=== PATIENT | female | born 1935 | race Caucasian/White ===

== ENCOUNTER 2020-04-05 12:36 | Outpatient (CLI) | payer MEDICARE ==
[~2020-04-05] VITALS: Ht 165 cm; Wt 92.7 kg
[~2020-04-05 12:36] MED LIST: ACET-819 PO; APIX2.5T PO; ASP81TEC PO; ASPI-586 PO; ATEN1TAB3 PO; BACI1TAB3 PO; CALC-6 PO; CALC-732 PO; CHOL10003 PO; CHOL100055 PO; CLOP75TA PO; CYAN100015 SL; DONE5TAB30 PO; FLUT9.9S NS; GLIP5TAB13 PO; GUAI120013 PO; KCL10CCR PO; LEVO500T2 PO; LOVA20TA2 PO; LOVA40TA2; LUTEIN PO; MAGN250T13 PO; MAGNESIUM PO; MEMA28CA PO; MTF500T PO; MULT-35 PO; POTA10TA36 PO; TRIA1TAB3 PO; ZINC PO
[2020-04-05] MEDS ORDERED: MEMA10TA2 PO (15:10)
[2020-04-05] MEDS ORDERED: DONE5TAB8 PO (15:10)
[2020-04-05] MEDS ORDERED: CITA10TA12 PO (15:10)
[2020-04-05] MEDS ORDERED: FEXO180T84 PO (15:10)
[2020-04-05] MEDS ORDERED: MTP25TSR PO (15:10)
[2020-04-05] MEDS ORDERED: GLIP5TAB13 PO (15:10)
[2020-04-05] MEDS ORDERED: CHOL100048 PO (15:10)
[2020-04-05] MEDS ORDERED: ASPI-999 PO (15:10)
[2020-04-05] MEDS ORDERED: MU V PO (15:10)
== END 2020-04-05 15:20 | disposition home or self-care (01) ==
LOC: PREOP 12:36
PROVIDERS: ATTEND Surgery
DX: Z01.818 Encounter for other preprocedural examination (principal)

== ENCOUNTER 2020-04-12 10:11 | Day surgery (SDC) | payer MEDICARE ==
[~2020-04-12] VITALS: Ht 165 cm; Wt 92.0 kg
[2020-04-12] VITALS (8 sets, daily range): BP systolic 94–138; BP diastolic 56–101
[~2020-04-12 10:11] MED LIST changes: +ASPI-999 PO; +CHOL100048 PO; +CITA10TA12 PO; +DONE5TAB8 PO; +FEXO180T84 PO; +MEMA10TA2 PO; +MTP25TSR PO; +MU V PO
[2020-04-12] MEDS ORDERED: LACTATED RINGERS 1,000 ML IV PRN (10:17)
[2020-04-12] MEDS ORDERED: CLINDAMYCIN 600 MG/50 ML IVPB 50 ML IV ONE (10:30)
[2020-04-12] MEDS ORDERED: LIDOCAINE PF 2% 5 ML (XYLOCAINE) VIAL ONE (11:06)
[2020-04-12] MEDS ORDERED: proPOfol 200 MG/20 ML (DIPRIVAN) VIAL IV ONE (11:06)
[2020-04-12] MEDS ORDERED: BUP/EPI 0.5% 1:200,000 (MARCAINE) 10ML VIAL IJ ONE (11:14)
[2020-04-12] MEDS ORDERED: LIDOCAINE 1% INJ 20 ML 20 ML VIAL ONE (11:16)
[2020-04-12] MEDS ORDERED: ESMOLOL 100 MG/10 ML (BREVIBLOC) VIAL ONE (12:07)
[2020-04-12] MEDS ORDERED: morphine INJ 10 MG/ML 1ML (SYR OR VIAL) IVP ONE (12:45)
[2020-04-12] MEDS ORDERED: ONDANSETRON 4 MG/2 ML (SDV) Z0FRAN IVP PRN (12:45)
--- NOTE | 2020-04-12 12:55 | Discharge Inst-Simple/Standard ---
Discharge Inst-Standard Patient Instructions/Follow Up Plan of Care/Instructions/FU: 12- 14 days for suture removal. Eduarda Activity as Tolerated: No Discharge Diet: Regular Diet Other Inst to Patient Follow up Appt: Make appointment for 12-14 days Instructions: No lifting greater than 10 pounds. No strenuous activity. May shower in 24 hours, no tub bath or soaking. Use incentive spirometer at home as directed. No Smoking Skin/Wound Care: May remove bandage after 24 hours. Keep area clean and dry. May replace bandage daily if needed. Any changes be seen at that time. Symptoms to Report: Appetite Changes, Extremity Discoloration, Numbness/Tingling, Swelling Increased, Bleeding Excessive, Eyesight Changes, Pain Increased, Urine Color Change, Constipation(Persistent), Fever over 101 degree F, Pain/Pressure in chest, Urinating Difficulty, Cough Up/Vomit Blood, Heart Beat Irreg/Pounding, Pain/Pressure in jaw, Vaginal Bleeding Increase, Cramps in feet or legs, Lightheadedness, Pain/Pressure in shoulder, Diarrhea(Persistent), Memory Changes Suddenly, Questions/Concerns, Weight gain consecutive days, Dizziness/Fainting, Nausea/Vomiting, Shortness of Breath, Weight gain over 2 pounds If questions or concerns contact your physician Or seek help at emergency department. CORBIN SERNA DO Apr 12, 2020 12:55
--- NOTE | 2020-04-12 12:58 | Progress Note-Post Operative ---
Post-Operative Progess Note Surgeon (s)/Flight Line Service Attendant (s) Surgeon CORBIN SERNA DO Flight Line Service Attendant: na Pre-Operative Diagnosis CYST LEFT LEG Post-Operative Diagnosis same Procedure & Operative Findings Date of Procedure 04/12/20 Procedure Performed/Findings excision left posterior thigh cyst 4.5x2cm Anesthesia Type mac c local Estimated Blood Loss Estimated blood loss (mL): min Specimens/Packing Specimens Removed skin and subcutaneous tissue (cyst) CORBIN SERNA DO Apr 12, 2020 12:58
--- NOTE | 2020-04-12 16:06 | Anesthesia-General Post-Op ---
MAC Patient Condition Mental Status/LOC: Same as Preop Cardiovascular: Satisfactory Nausea/Vomiting: Absent Respiratory: Satisfactory Pain: Controlled Complications: Absent Post Op Complications Complications None Follow Up Care/Instructions Patient Instructions None needed. Anesthesiology Discharge Order Discharge Order Patient is doing well, no complaints, stable vital signs, no apparent adverse anesthesia problems. No complications reported per nursing. FERMÍN MICHAEL CRNA Apr 12, 2020 16:06
--- NOTE | 2020-04-13 06:17 | OPERATIVE REPORT ---
DATE OF SERVICE: 04/12/2020 PREOPERATIVE DIAGNOSIS: Left posterior thigh cyst. POSTOPERATIVE DIAGNOSIS: Left posterior thigh cyst. PROCEDURE: Excision of left posterior thigh cyst, 4.5 x 2 cm. SURGEON: Corbin Lerner DO ANESTHESIA: MAC with local. ESTIMATED BLOOD LOSS: Minimal. COMPLICATIONS: None. INDICATIONS: The patient is an 84-year-old female with recurrent cyst is causing her difficulty. The patient's family understand risks and benefits of procedure and wished to proceed with procedure. Consent was signed in the chart. DESCRIPTION OF PROCEDURE: The patient was taken to the operating suite. She was prepped and draped in sterile fashion. Timeout was performed. She was in the right lateral recumbent position. Local anesthetic was infiltrated around the cyst area. A 15 blade scalpel was used to make a skin incision measuring 4.5 x 2 cm. Cautery was used to dissect down to the subcutaneous tissues, removing the skin and subcutaneous tissues completely. Hemostasis was achieved. The skin was then closed using 3-0 nylon in a vertical mattress fashion. The patient then had the area washed and dried and sterile bandages were applied. The patient tolerated procedure well without any complications. She was taken to recovery room in stable condition. RECOMMENDATIONS: The patient will follow up in 12 to 14 days for suture removal. Any issues before that be seen at that time. Job ID: [id number] DocumentID: [id number] Dictated Date: 04/12/2020 20:11:47 Loader Machine Date: 04/13/2020 06:16:47 Dictated By: CORBIN LERNER DO
== END 2020-04-12 14:00 | disposition home or self-care (01) ==
LOC: SDC 10:11
PROVIDERS: ATTEND Surgery
DX: L72.0 Epidermal cyst (principal); E11.9 Type 2 diabetes mellitus without complications; E78.5 Hyperlipidemia, unspecified; I25.10 Atherosclerotic heart disease of native coronary artery without angina pectoris; M19.91 Primary osteoarthritis, unspecified site; I10 Essential (primary) hypertension; I48.91 Unspecified atrial fibrillation; F03.90 Unspecified dementia, unspecified severity, without behavioral disturbance, psychotic disturbance, mood disturbance, and anxiety; K44.9 Diaphragmatic hernia without obstruction or gangrene; Z88.5 Allergy status to narcotic agent; Z88.1 Allergy status to other antibiotic agents; Z96.649 Presence of unspecified artificial hip joint; Z79.01 Long term (current) use of anticoagulants; Z79.82 Long term (current) use of aspirin; Z79.899 Other long term (current) drug therapy; Z79.84 Long term (current) use of oral hypoglycemic drugs; Z11.2 Encounter for screening for other bacterial diseases
CPT/HCPCS: 82962; 87081

== ENCOUNTER 2021-06-04 18:53 | Emergency (ER) | payer MEDICARE ==
[~2021-06-04 18:53] MED LIST changes: -CALC-6 PO; +CALC1TAB84 PO
[2021-06-04] MEDS ORDERED: cefTRIAXone 1,000 MG in WATER (STERILE) FOR INJECTION 10 ML IV ONE (19:30)
[2021-06-04] MEDS ORDERED: NS IV 1000 ML 1,000 ML IV SCH (19:30)
--- NOTE | 2021-06-04 19:38 | ED Fall/Injury ---
General Chief Complaint: Altered Mental Status Stated Complaint: CONFUSION Source: patient Exam Limitations: no limitations History of Present Illness Date Seen by Provider: Jun 04, 2021 Time Seen by Provider: 19:13 Initial Comments Patient to the ER by private conveyance with her daughter and chief complaint. Staff at the [facility] had noted the patient has been more confused as of late especially in the evening. She was having anxiety and agitation related to her dementia and recently started on 12.5 mg of Seroquel by Dr. Grubbs. Family thought the patient was doing better up until the last couple days she has been slower and more tired. Patient had a fall yesterday and was noted immediately by staff and did not seem to have any significant injuries so we will continue to observe her. She is on Eliquis with a history of atrial fibrillation. She sees Dr. Thompson for cardiology. She is denying any pain anywhere. She has a small abrasion on her hand per nursing staff. She was noted to be tachycardic today per nursing notes at the [facility] home as well as here in the ER around 100 bpm. No fevers or chills. Patient states she does not feel well but does not endorse nausea chest pain shortness of air fevers chills diarrhea or dysuria. She did get treated about 3 weeks ago for a UTI. Echocardiogram by Dr. Thompson 2016: EF of 55% with moderate aortic valve sclerosis and mitral calcification of the annulus but without significant stenosis Allergies and Home Medications Allergies Coded Allergies: cephalexin (Verified Allergy, Intermediate, 04/05/20) codeine (Verified Allergy, Intermediate, 04/05/20) oxaprozin (Verified Allergy, Intermediate, 04/05/20) rimantadine (Verified Allergy, Intermediate, 04/05/20) Patient Home Medication List Home Medication List Reviewed: Yes Apixaban (Eliquis) 2.5 Mg Tablet, 2.5 MG PO BID, (Reported) Entered as Reported by: NORMAN JARAMILLO on 06/01/16 1514 Aspirin (Aspirin) 81 Mg Tab.chew, 81 MG PO DAILY, (Reported) Entered as Reported by: SIDNEY CHAPMAN on 04/05/20 1510 Calcium Carbonate/Vitamin D3 (Calcium 600 + Vit D 200 Tablet) 1 Each Tablet, 1 TAB PO DAILY, (Reported) Entered as Reported by: MANISH WOODY on 06/02/16 0900 Cholecalciferol (Vitamin D3) (Vitamin D3) 25 Mcg Capsule, 25 MCG PO DAILY, (Reported) Entered as Reported by: SIDNEY CHAPMAN on 04/05/201509 Citalopram Hydrobromide (Celexa) 10 Mg Tablet, 10 MG PO DAILY, (Reported) Entered as Reported by: SIDNEY CHAPMAN on 04/05/201509 Donepezil HCl (Aricept) 5 Mg Tablet, 5 MG PO DAILY, (Reported) Entered as Reported by: SIDNEY CHAPMAN on 04/05/201509 Fexofenadine HCl (Bonnie Allergy) 180 Mg Tablet, 180 MG PO DAILY, (Reported) Entered as Reported by: SDINEY CHAPMAN on 04/05/201509 Glipizide (Glipizide) 5 Mg Tablet, 5 MG PO DAILY, (Reported) Entered as Reported by: NORMAN JARAMILLO on 06/01/161513 Glipizide (Glipizide) 5 Mg Tablet, 2.5 MG PO SUPPER, (Reported) Entered as Reported by: SIDNEY CHAPMAN on 04/05/201509 Lovastatin (Lovastatin) 20 Mg Tablet, 20 MG PO HS, (Reported) Entered as Reported by: NORMAN JARAMILLO on 06/01/161513 Magnesium Oxide (Magnesium) 250 Mg Tablet, 250 MG PO DAILY, (Reported) Entered as Reported by: MANISH WOODY on 06/02/16 0900 Memantine HCl (Namenda) 10 Mg Tablet, 10 MG PO BID, (Reported) Entered as Reported by: SIDNEY CHAPMAN on 04/05/201509 Metoprolol Succinate (Metoprolol Succinate) 25 Mg Tab.er.24h, 25 MG PO DAILY, (Reported) Entered as Reported by: SIDNEY CHAPMAN on 04/05/201509 Multivit-Min/FA/Lycopene/Lut (Sentry Senior Tablet) 1 Each Tablet, 1 EACH PO DAILY, (Reported) Entered as Reported by: SIDNEY CHAPMAN on 04/05/201509 Potassium Chloride (Potassium Chloride) 10 Meq Tab.er.prt, 10 MEQ PO BID, (Reported) Entered as Reported by: NORMAN JARAMILLO on 06/01/161513 Triamterene/Hydrochlorothiazid (Triamterene-Hctz 37.5-25 mg Tb) 1 Each Tablet, 1 TAB PO DAILY, (Reported) Entered as Reported by: NORMAN JARAMILLO on 06/01/161513 Review of Systems Review of Systems Constitutional: No chills, No diaphoresis Eyes: Denies Blindness, Denies Blurred Vision Ears, Nose, Mouth, Throat: denies ear pain, denies ear discharge Respiratory: No cough, No short of breath Cardiovascular: No chest pain, No edema Gastrointestinal: No abdominal pain, No nausea Genitourinary: No discharge, No dysuria Musculoskeletal: No back pain, No joint pain All Other Systems Reviewed Negative Unless Noted: Yes Past Idjkggj-Xhvqbp-Eezcmc Hx Patient Social History Tobacco Use?: No Use of E-Cig and/or Vaping dev: No Substance use?: No Alcohol Use?: No Immunizations Up To Date Tetanus Booster (TDap): Unknown Seasonal Allergies Seasonal Allergies: Yes Past Medical History Surgeries: Yes (TOTAL HIP REPLACEMENT) Hysterectomy, Orthopedic Respiratory: No Currently Using CPAP: No Currently Using BIPAP: No Cardiac: Yes Atrial Fibrillation, Hypertension Neurological: Yes (POSS TIA) Dementia, TIA Reproductive Disorders: No Female Reproductive Disorders: Endometriosis Sexually Transmitted Disease: No HIV/AIDS: No Genitourinary: Yes (LOW KIDNEY FUNCTION) UTI-Chronic Gastrointestinal: Yes Hiatal Hernia Musculoskeletal: Yes Arthritis Endocrine: Yes Diabetes, Non-Insulin dep HEENT: No Loss of Vision: Denies Hearing Impairment: Denies Cancer: No Psychosocial: No Integumentary: No Blood Disorders: No Adverse Reaction/Blood Tranf: No (HAS HAD BLOOD WITH NO REACTION) Family Medical History Diabetes mellitus 19 MOTHER FH: Parkinson's disease 19 FATHER G8 BROTHER Heart Disease, Diabetes, Hypertension Physical Exam Vital Signs Vital Signs - First Documented 06/04/21 19:10 Temp 36.8 Pulse 98 Resp 16 B/P (MAP) 119/71 (87) Pulse Ox 95 O2 Delivery Room Air Capillary Refill : Height, Weight, BMI Height: 5'8.00" Weight: 187lbs. 0.0oz. 84.424541ll; 33.79 BMI Method:Stated General Appearance: WD/WN, mild distress HEENT: PERRL/EOMI (3 mm, symmetric reactive and without raccoon eyes), TMs normal (Without hemotympanum or reyna sign); No pharynx normal (Dry oral mucosa) Neck: non-tender, full range of motion, supple, normal inspection Cardiovascular: normal peripheral pulses, regular rate, rhythm Respiratory: lungs clear, normal breath sounds, no respiratory distress, no accessory muscle use Peripheral Pulses: 2+ Radial Pulses (R), 2+ Radial Pulses (L) Gastrointestinal: normal bowel sounds, non tender, soft Extremities: normal range of motion, non-tender, normal inspection, normal capillary refill Neurologic/Psychiatric: alert, normal mood/affect, other (Oriented to person) Skin: normal color, warm/dry Hoa Coma Score Best Eye Response: (4) Open Spontaneously Best Verbal Response: (5) Oriented Best Motor Response: (6) Obeys Commands Hoa Total: 15 Progress/Results/Core Measures Results/Orders Lab Results Laboratory Tests Test 06/04/21 19:17 06/04/21 19:24 06/04/21 19:39 Range/Units White Blood Count 8.6 4.3-11.0 10^3/uL Red Blood Count 4.83 3.80-5.11 10^6/uL Hemoglobin 13.2 11.5-16.0 g/dL Hematocrit 42 35-52 % Mean Corpuscular Volume 87 80-99 fL Mean Corpuscular Hemoglobin 27 25-34 pg Mean Corpuscular Hemoglobin Concent 31 L 32-36 g/dL Red Cell Distribution Width 14.2 10.0-14.5 % Platelet Count 172 130-400 10^3/uL Mean Platelet Volume 9.8 9.0-12.2 fL Immature Granulocyte % (Auto) 0 % Neutrophils (%) (Auto) 63 42-75 % Lymphocytes (%) (Auto) 23 12-44 % Monocytes (%) (Auto) 12 0-12 % Eosinophils (%) (Auto) 1 0-10 % Basophils (%) (Auto) 0 0-10 % Neutrophils # (Auto) 5.4 1.8-7.8 10^3/uL Lymphocytes # (Auto) 2.0 1.0-4.0 10^3/uL Monocytes # (Auto) 1.1 H 0.0-1.0 10^3/uL Eosinophils # (Auto) 0.1 0.0-0.3 10^3/uL Basophils # (Auto) 0.0 0.0-0.1 10^3/uL Immature Granulocyte # (Auto) 0.0 0.0-0.1 10^3/uL Prothrombin Time 15.8 H 12.2-14.7 SEC INR Comment 1.2 0.8-1.4 Activated Partial Thromboplast Time 29 24-35 SEC Sodium Level 138 135-145 MMOL/L Potassium Level 4.3 3.6-5.0 MMOL/L Chloride Level 99 98-107 MMOL/L Carbon Dioxide Level 28 21-32 MMOL/L Anion Gap 11 5-14 MMOL/L Blood Urea Nitrogen 20 H 7-18 MG/DL Creatinine 1.86 H 0.60-1.30 MG/DL Estimat Glomerular Filtration Rate 26 BUN/Creatinine Ratio 11 Glucose Level 176 H 70-105 MG/DL Lactic Acid Level 0.90 0.50-2.00 MMOL/L Calcium Level 9.6 8.5-10.1 MG/DL Corrected Calcium 9.8 8.5-10.1 MG/DL Total Bilirubin 0.5 0.1-1.0 MG/DL Aspartate Amino Transf (AST/SGOT) 22 5-34 U/L Alanine Aminotransferase (ALT/SGPT) 18 0-55 U/L Alkaline Phosphatase 79 40-136 U/L Total Protein 6.9 6.4-8.2 GM/DL Albumin 3.7 3.2-4.5 GM/DL Urine Color YELLOW Urine Clarity CLEAR Urine pH 7.0 5-9 Urine Specific [place] 1.020 1.016-1.022 Urine Protein TRACE H NEGATIVE Urine Glucose (UA) NEGATIVE NEGATIVE Urine Ketones NEGATIVE NEGATIVE Urine Nitrite NEGATIVE NEGATIVE Urine Bilirubin NEGATIVE NEGATIVE Urine Urobilinogen 0.2 < = 1.0 MG/DL Urine Leukocyte Esterase NEGATIVE NEGATIVE Urine RBC (Auto) NEGATIVE NEGATIVE Urine RBC 0-2 /HPF Urine WBC 0-2 /HPF Urine Crystals NONE /LPF Urine Bacteria TRACE /HPF Urine Casts NONE /LPF Urine Mucus NEGATIVE /LPF Urine Culture Indicated NO Glucometer 154 H 70-110 MG/DL My Orders Orders - MISA AMY Cbc With Automated Diff (06/04/21 19:29) Comprehensive Metabolic Panel (06/04/21 19:29) Blood Culture (10/19/21 19:29) Sputum Culture (06/04/21) Urinalysis (06/04/21) Urine Culture (06/04/21) Protime With Inr (06/04/21) Partial Thromboplastin Time (06/04/21) Chest 1 View, Ap/Pa Only (06/04/21) Ed Iv/Invasive Line Start (06/04/21) Ed Iv/Invasive Line Start (06/04/21) Ekg Tracing (06/04/21) Vital Signs Adult Sepsis Patie Q15M (06/04/21) O2 (06/04/21) Remove Rings In Anticipation O (06/04/21) Lactic Acid Analyzer (06/04/21) Ns Iv 1000 Ml (Sodium Chloride 0.9%) (06/04/21:) Ceftriaxone (Rocephin) (06/04/21:30) Ct Head/Cervical Spine Wo (06/04/21) Accucheck Stat ONCE (06/04/21) Catheter(Urinary) Insert & Ass 03,15 (06/04/21) Tibia/Fibula, Right, 2 Views (06/04/21 20:00) Medications Given in ED Current Medications Medications Dose Ordered Sig/Edis Route Start Time Stop Time Status Last Admin Dose Admin Ceftriaxone Sodium 1000 mg/ Sterile Water 10 ml @ 200 mls/hr ONCE ONCE IV 06/04/21:30 06/04/21 19:32 DC 06/04/21 20:43 200 MLS/HR Vital Signs/I&O 06/04/21 19:10 Temp 36.8 Pulse 98 Resp 16 B/P (MAP) 119/71 (87) Pulse Ox 95 O2 Delivery Room Air Progress Progress Note #1: Time: 19:35 Progress Note With her tachycardia, mild dehydration evident on clinical exam and falls I suspect a UTI is possible. We will put a Parmar catheter and to collect a good sterile specimen and give her a liter of fluids to start. Accu-Chek. If she has a white count and she would meet sepsis criteria. CT of the head and neck to rule out acute trauma related to falls Progress Note #2: Time: 20:04 Progress Note White count is normal so sepsis is ruled out. Urine is pending. Creatinine is at baseline 1.6-1.8. Progress Note #3: Time: 21:39 Progress Note Labs, urine and imaging were reviewed with the patient's daughter. Because she is on Eliquis and had a fall yesterday it is reasonable to do an overnight observation for neuro checks. She does live in an assisted living and can get neuro checks in the morning as well. We discussed the possibility of owning and worsening delirium if she is not in a familiar environment and the daughter felt that she would be worse if she stayed here in the hospital. Using a clinically supported decision-making process we elected to allow her to go home and do some neuro checks tomorrow as well as a one-time dose of 50 mg Seroquel tonight. Patient's not having any concerns at this time. Will take the Parmar catheter out tonight Initial ECG Impression Date: Jun 04, 2021 Initial ECG Impression Time: 19:33 Initial ECG Rate: 97 Initial ECG Rhythm: A Fib/Flutter Initial ECG Intervals: QT (489) Initial ECG Impression: Normal, Nonspecific Changes Initial ECG Comparisson: No Previous ECG Available Comment Atrial flutter with 3-1 AV block. No clinically relevant ST changes. Diagnostic Imaging Diagonstic Imaging: Xray Plain Films/CT/US/NM/MRI: chest Comments [facility] [place] NAME: [facility] REC#: [id number] PT STATUS: REG ER : 1935 PHYSICIAN: MISA MAY MD ADMIT DATE: 06/04/21/ER Draft Date of Exam:06/04/21 CHEST 1 VIEW, AP/PA ONLY INDICATION: Sepsis. Fall and confusion. EXAM: Frontal chest obtained at 08:18 p.m. and compared to 06/02/2016 There is cardiomegaly. There is mild central vascular prominence which appears chronic. There is no focal infiltrate, pneumothorax or pleural fluid. IMPRESSION: Cardiomegaly and chronic changes with no acute process in the chest. Dictated on workstation # [id number] Dict: 06/04/212027 Trans: 06/04/212033 [facility] [phone] Interpreted by: SAM REIS MD Electronically signed by: Reviewed: Reviewed by Ut Diagonstic Imaging: CT Plain Films/CT/US/NM/MRI: c-spine, head Comments NAME: [facility] REC#: [id number] PT STATUS: REG ER : 1935 PHYSICIAN: MISA MAY MD ADMIT DATE: 06/04/21/ER Draft Date of Exam:06/04/21 CT HEAD/CERVICAL SPINE WO INDICATION: Fall with head and neck pain TECHNIQUE: Multiple contiguous axial images were obtained through the brain and cervical spine without the use of intravenous contrast. Sagittal and coronal reformations through the cervical spine were then performed. Auto Exposure Controls were utilized during the CT exam to meet ALARA standards for radiation dose reduction. CT brain findings: There are diffuse atrophic changes. There are patchy low-density changes throughout the deep white matter compatible with chronic ischemic change. Calvarial windows were unremarkable. There is no acute appearing intracranial finding. CT cervical spine findings: There is no evidence of cervical spine fracture. There is no subluxation or malalignment. There are extensive diffuse degenerative changes throughout the cervical spine at all levels with disc space narrowing and osteophyte formation. There is diffuse facet degenerative change. IMPRESSION: CT brain shows chronic changes with no acute intracranial abnormality. CT cervical spine demonstrates diffuse degenerative findings with no acute abnormality. Dictated on workstation # [id number] Dict: 06/04/212023 Trans: 06/04/212050 [facility] [id number] Interpreted by: SAM REIS MD Electronically signed by: Reviewed: Reviewed by Ut Diagonstic Imaging: Xray Plain Films/CT/US/NM/MRI: leg (r) Comments [facility] [place] NAME: [facility] REC#: [id number] PT STATUS: REG ER : 1935 PHYSICIAN: MISA MAY MD ADMIT DATE: 06/04/21/ER Draft Date of Exam:06/04/21 TIBIA/FIBULA, RIGHT, 2 VIEWS INDICATION: Right leg pain AP and lateral views of the right tibia and fibula are obtained. No fracture or acute bony abnormality is seen. There is marked degenerative change of the knee joint. IMPRESSION: No acute abnormality of the right tibia and fibula. Dictated on workstation # [id number] Dict: 06/04/212028 Trans: 06/04/212034 [facility] [phone] Interpreted by: SAM REIS MD Electronically signed by: Reviewed: Reviewed by Me Focused Exam Lactate Level 06/04/21 19:17: Lactic Acid Level 0.90 Lactic Acid Level Laboratory Tests Test 06/04/21 19:17 Lactic Acid Level 0.90 MMOL/L (0.50-2.00) Departure Impression Primary Impression: Dementia with behavioral disturbance Qualified Codes: F03.91 - Unspecified dementia with behavioral disturbance Additional Impressions: History of elopement from health care facility Fall Qualified Codes: W19.XXXA - Unspecified fall, initial encounter Hx of fpc use of blood thinners Mild dehydration Disposition: 01 HOME, SELF-CARE Condition: Stable Departure-Patient Inst. Decision time for Depature: 21:42 Referrals: VICTORIANO GRUBBS MD (PCP/Family) Primary Care Physician Patient Instructions: HEAD [id number] WAKE-UP, Preventing Falls, Tips for Caregivers of People With Alzheimer Disease Add. Discharge Instructions: Make sure that there is always a ready supply of drinking water available to the patient. Discuss with Dr. Grubbs increasing her Seroquel. Promptly return to the ER for any worsening changes for reevaluation such as inability to wake up, inability to walk. We did give her a dose of Seroquel tonight which will make her drowsy possibly even into the morning. Neuro checks three times a day x1 day starting in the morning. Report to the primary care provider for any abnormal symptoms or return to the ER. All discharge instructions reviewed with patient and/or family. Voiced understanding. Copy Copies To 1: VICTORIANO GRUBSB MD, TITUS J Jun 04, 2021 19:38
[2021-06-04 19:42] LABS: BILIRUBIN,URINE NEGATIVE (NEGATIVE); CLARITY,URINE CLEAR; COLOR,URINE YELLOW; GLUCOSE, URINE (UA) NEGATIVE (NEGATIVE); KETONES,URINE NEGATIVE (NEGATIVE); LEUKOCYTE ESTERASE ,URINE NEGATIVE (NEGATIVE); NITRITE,URINE NEGATIVE (NEGATIVE); PROTEIN,URINE TRACE (NEGATIVE)
[2021-06-04 19:43] LABS: BASOPHILS % (AUTO) 0 % (0-10); EOSINOPHILS # (AUTO) 0.1 10^3/uL (0.0-0.3); EOSINOPHILS % (AUTO) 1 % (0-10); HEMATOCRIT 42 % (35-52); HEMOGLOBIN 13.2 g/dL (11.5-16.0); LYMPHOCYTES % (AUTO) 23 % (12-44); MEAN CORPUSCULAR HEMOGLOBIN 27 pg (25-34); MEAN CORPUSCULAR HGB CONC 31 g/dL (32-36); MEAN CORPUSCULAR VOLUME 87 fL (80-99); MEAN PLATELET VOLUME 9.8 fL (9.0-12.2); MONOCYTES # (AUTO) 1.1 10^3/uL (0.0-1.0); MONOCYTES % (AUTO) 12 % (0-12); NEUTROPHILS # (AUTO) 5.4 10^3/uL (1.8-7.8); NEUTROPHILS % (AUTO) 63 % (42-75); PLATELET COUNT 172 10^3/uL (130-400); WHITE BLOOD COUNT 8.6 10^3/uL (4.3-11.0)
[2021-06-04 19:55] LABS: ALBUMIN 3.7 GM/DL (3.2-4.5); BILIRUBIN,TOTAL 0.5 MG/DL (0.1-1.0); CALCIUM 9.6 MG/DL (8.5-10.1); CREATININE SERUM 1.86 MG/DL (0.60-1.30); INR 1.2 (0.8-1.4); POTASSIUM 4.3 MMOL/L (3.6-5.0); PROTHROMBIN TIME PATIENT 15.8 SEC (12.2-14.7); TOTAL PROTEIN 6.9 GM/DL (6.4-8.2)
[2021-06-04 20:05] LABS: BACTERIA,URINE TRACE /HPF; RBC,URINE 0-2 /HPF; WBC,URINE 0-2 /HPF
--- NOTE | 2021-06-04 20:36 | Diagnostic Imaging Report ---
INDICATION: Sepsis. Fall and confusion. EXAM: Frontal chest obtained at 08:18 p.m. and compared to 06/02/2016 There is cardiomegaly. There is mild central vascular prominence which appears chronic. There is no focal infiltrate, pneumothorax or pleural fluid. IMPRESSION: Cardiomegaly and chronic changes with no acute process in the chest. Dictated by: Dictated on workstation # [id number]
--- NOTE | 2021-06-04 20:36 | Diagnostic Imaging Report ---
INDICATION: Right leg pain AP and lateral views of the right tibia and fibula are obtained. No fracture or acute bony abnormality is seen. There is marked degenerative change of the knee joint. IMPRESSION: No acute abnormality of the right tibia and fibula. Dictated by: Dictated on workstation # [id number]
--- NOTE | 2021-06-04 20:51 | Diagnostic Imaging Report ---
INDICATION: Fall with head and neck pain TECHNIQUE: Multiple contiguous axial images were obtained through the brain and cervical spine without the use of intravenous contrast. Sagittal and coronal reformations through the cervical spine were then performed. Auto Exposure Controls were utilized during the CT exam to meet ALARA standards for radiation dose reduction. CT brain findings: There are diffuse atrophic changes. There are patchy low-density changes throughout the deep white matter compatible with chronic ischemic change. Calvarial windows were unremarkable. There is no acute appearing intracranial finding. CT cervical spine findings: There is no evidence of cervical spine fracture. There is no subluxation or malalignment. There are extensive diffuse degenerative changes throughout the cervical spine at all levels with disc space narrowing and osteophyte formation. There is diffuse facet degenerative change. IMPRESSION: CT brain shows chronic changes with no acute intracranial abnormality. CT cervical spine demonstrates diffuse degenerative findings with no acute abnormality. Dictated by: Dictated on workstation # [id number]
[2021-06-04] MEDS ORDERED: QUEtiapine 25 MG (SEROquel) TAB IMMEDIATE RELEASE PO SCH (21:45)
[2021-06-04 22:02] VITALS: BP 131/90
== END 2021-06-04 22:06 | disposition home or self-care (01) ==
LOC: EDUNIT# 18:53 → ER 18:54
DX: F03.91 Unspecified dementia, unspecified severity, with behavioral disturbance (principal); E86.0 Dehydration; I10 Essential (primary) hypertension; I48.91 Unspecified atrial fibrillation; E11.9 Type 2 diabetes mellitus without complications; R00.0 Tachycardia, unspecified; Z86.73 Personal history of transient ischemic attack (TIA), and cerebral infarction without residual deficits; Z79.01 Long term (current) use of anticoagulants; Z79.82 Long term (current) use of aspirin; Z79.899 Other long term (current) drug therapy
CPT/HCPCS: 36415; 70450; 71045; 72125; 73590; 80053; 81000; 82947; 83605; 85025; 85610; 85730; 87040; 87088; 93005

== ENCOUNTER 2021-10-28 09:38 | Emergency (ER) | payer MEDICARE ==
[~2021-10-28] VITALS: Ht 170 cm; Wt 86.0 kg
[~2021-10-28 09:38] MED LIST changes: -POTA10TA36 PO; +POTA10TA37 PO
--- NOTE | 2021-10-28 09:59 | ED Fall/Injury ---
General Chief Complaint: Trauma-Non Activation Stated Complaint: FALL Source: patient, family (Daughter) Exam Limitations: no limitations History of Present Illness Date Seen by Provider: Oct 28, 2021 Time Seen by Provider: 09:45 Initial Comments Patient presents the ER by EMS from [facility] where she is residing on hospice with chief complaint that she had a fall backwards and struck her head on the occiput having some bleeding. No loss of consciousness. She is on Eliquis. She says she is not having much pain. Nursing reports a small less than 1 cm wound midline occiput. Allergies and Home Medications Allergies Coded Allergies: cephalexin (Verified Allergy, Intermediate, 04/05/20) codeine (Verified Allergy, Intermediate, 04/05/20) oxaprozin (Verified Allergy, Intermediate, 04/05/20) rimantadine (Verified Allergy, Intermediate, 04/05/20) Patient Home Medication List Home Medication List Reviewed: Yes Apixaban (Eliquis) 2.5 Mg Tablet, 2.5 MG PO BID, (Reported) Entered as Reported by: NORMAN JARAMILLO on 06/01/16 1514 Aspirin (Aspirin) 81 Mg Tab.chew, 81 MG PO DAILY, (Reported) Entered as Reported by: SIDNEY CHAPMAN on 04/05/20 151 Calcium Carbonate/Vitamin D3 (Calcium 600 + Vit D 200 Tablet) 1 Each Tablet, 1 TAB PO DAILY, (Reported) Entered as Reported by: MANISH WOODY on 06/02/16 0900 Cholecalciferol (Vitamin D3) (Vitamin D3) 25 Mcg Capsule, 25 MCG PO DAILY, (Reported) Entered as Reported by: SIDNEY CHAPMAN on 04/05/20 151 Citalopram Hydrobromide (Celexa) 10 Mg Tablet, 10 MG PO DAILY, (Reported) Entered as Reported by: SIDNEY CHAPMAN on 04/05/20 151 Donepezil HCl (Aricept) 5 Mg Tablet, 5 MG PO DAILY, (Reported) Entered as Reported by: SIDNEY CHAPMAN on 04/05/20 151 Fexofenadine HCl (Bonnie Allergy) 180 Mg Tablet, 180 MG PO DAILY, (Reported) Entered as Reported by: SIDNEY CHAPMAN on 8/1509 Glipizide (Glipizide) 5 Mg Tablet, 5 MG PO DAILY, (Reported) Entered as Reported by: NORMAN JARAMILLO on 06/01/161513 Glipizide (Glipizide) 5 Mg Tablet, 2.5 MG PO SUPPER, (Reported) Entered as Reported by: SIDNEY CHAPMAN on 04/05/201509 Lovastatin (Lovastatin) 20 Mg Tablet, 20 MG PO HS, (Reported) Entered as Reported by: NORMAN JARAMILLO on 06/01/161513 Magnesium Oxide (Magnesium) 250 Mg Tablet, 250 MG PO DAILY, (Reported) Entered as Reported by: MANISH WOODY on 06/02/16 0900 Memantine HCl (Namenda) 10 Mg Tablet, 10 MG PO BID, (Reported) Entered as Reported by: SIDNEY CHAPMAN on 04/05/201509 Metoprolol Succinate (Metoprolol Succinate) 25 Mg Tab.er.24h, 25 MG PO DAILY, (Reported) Entered as Reported by: SIDNEY CHAPMAN on 04/05/201509 Multivit-Min/FA/Lycopene/Lut (Sentry Senior Tablet) 1 Each Tablet, 1 EACH PO DAILY, (Reported) Entered as Reported by: SIDNEY CHAPMAN on 04/05/201509 Potassium Chloride (Potassium Chloride) 10 Meq Tab.er.prt, 10 MEQ PO BID, (Reported) Entered as Reported by: NORMAN JARAMILLO on 06/01/161513 Triamterene/Hydrochlorothiazid (Triamterene-Hctz 37.5-25 mg Tb) 1 Each Tablet, 1 TAB PO DAILY, (Reported) Entered as Reported by: NORMAN JARAMILLO on 06/01/161513 Review of Systems Review of Systems Constitutional: No chills, No diaphoresis Eyes: Denies Blindness, Denies Drainage Ears, Nose, Mouth, Throat: denies ear pain, denies ear discharge Respiratory: No cough, No short of breath Cardiovascular: No chest pain, No edema Gastrointestinal: No abdominal pain, No nausea, No vomiting Genitourinary: No dysuria, No frequency All Other Systems Reviewed Negative Unless Noted: Yes Past Qpaosos-Vfmlwn-Zbpwmr Hx Patient Social History Tobacco Use?: No Use of E-Cig and/or Vaping dev: No Substance use?: No Immunizations Up To Date Tetanus Booster (TDap): Unknown First/Initial COVID19 Vaccinat: 08/14/21 Second COVID19 Vaccination [place]: 09/11/20 Seasonal Allergies Seasonal Allergies: Yes Past Medical History Surgeries: Yes (TOTAL HIP REPLACEMENT) Hysterectomy, Orthopedic Respiratory: No Currently Using CPAP: No Currently Using BIPAP: No Cardiac: Yes Atrial Fibrillation, Hypertension Neurological: Yes (POSS TIA) Dementia, TIA Reproductive Disorders: No Female Reproductive Disorders: Endometriosis Sexually Transmitted Disease: No HIV/AIDS: No Genitourinary: Yes (LOW KIDNEY FUNCTION) UTI-Chronic Gastrointestinal: Yes Hiatal Hernia Musculoskeletal: Yes Arthritis Endocrine: Yes Diabetes, Non-Insulin dep HEENT: No Loss of Vision: Denies Hearing Impairment: Denies Cancer: No Psychosocial: No Integumentary: No Blood Disorders: No Adverse Reaction/Blood Tranf: No (HAS HAD BLOOD WITH NO REACTION) Family Medical History Diabetes mellitus 19 MOTHER FH: Parkinson's disease 19 FATHER G8 BROTHER Heart Disease, Diabetes, Hypertension Physical Exam Vital Signs Vital Signs - First Documented 10/28/21 09:40 Temp 36.0 Pulse 109 Resp 18 B/P (MAP) 111/82 (92) Pulse Ox 97 Capillary Refill : Height, Weight, BMI Height: 5'8.00" Weight: 187lbs. 0.0oz. 84.486466in; 33.79 BMI Method:Stated General Appearance: WD/WN, no apparent distress HEENT: PERRL/EOMI, normal ENT inspection, TMs normal, pharynx normal, other (Small irregular blunt laceration over the occiput approximately 1 cm in diameter) Neck: non-tender, full range of motion, supple, normal inspection Cardiovascular: normal peripheral pulses, regular rate, rhythm Respiratory: no respiratory distress, no accessory muscle use Neurologic/Psychiatric: alert, normal mood/affect, oriented x 3 [place] Coma Score Best Eye Response: (4) Open Spontaneously Best Verbal Response: (5) Oriented Best Motor Response: (6) Obeys Commands Hoa Total: 15 Procedures/Interventions Wound Location: Scalp Other Wound Location Right occiput Wound Length (cm): 1 Wound's Depth, Shape: linear, sub Q Wound Explored: clean Irrigated w/ Saline (ccs): 100 Betadine Prep?: Yes (Chlorhexidine and sterile saline) Anesthesia: 1% Lidocaine Volume Anesthetic (ccs): 1 Wound Debrided: minimal Staple Repair: Stapler 35W Number of Sutures: 3 Sterile Dressing Applied?: Yes Progress/Results/Core Measures Results/Orders Lab Results Laboratory Tests Test 10/28/21 11:11 Range/Units White Blood Count 7.0 4.3-11.0 10^3/uL Red Blood Count 4.84 3.80-5.11 10^6/uL Hemoglobin 11.8 11.5-16.0 g/dL Hematocrit 40 35-52 % Mean Corpuscular Volume 82 80-99 fL Mean Corpuscular Hemoglobin 24 L 25-34 pg Mean Corpuscular Hemoglobin Concent 30 L 32-36 g/dL Red Cell Distribution Width 17.1 H 10.0-14.5 % Platelet Count 136 130-400 10^3/uL Mean Platelet Volume 9.1 9.0-12.2 fL Immature Granulocyte % (Auto) 0 % Neutrophils (%) (Auto) 63 42-75 % Lymphocytes (%) (Auto) 18 12-44 % Monocytes (%) (Auto) 15 H 0-12 % Eosinophils (%) (Auto) 3 0-10 % Basophils (%) (Auto) 0 0-10 % Neutrophils # (Auto) 4.5 1.8-7.8 10^3/uL Lymphocytes # (Auto) 1.2 1.0-4.0 10^3/uL Monocytes # (Auto) 1.1 H 0.0-1.0 10^3/uL Eosinophils # (Auto) 0.2 0.0-0.3 10^3/uL Basophils # (Auto) 0.0 0.0-0.1 10^3/uL Immature Granulocyte # (Auto) 0.0 0.0-0.1 10^3/uL My Orders Orders - MISA MAY Ct Head/Cervical Spine Wo (10/28/21 09:55) Cbc With Automated Diff (10/28/21 11:08) Ua Culture If Indicated (10/28/21 11:08) Vital Signs/I&O 10/28/21 10/28/21 09:40 11:32 Temp 36.0 Pulse 109 88 Resp 18 18 B/P (MAP) 111/82 (92) 116/80 Pulse Ox 97 97 Progress Progress Note #1: Time: 09:57 Progress Note Patient would like to proceed with a CT so we will get a CT of the head and C- spine. Observation precautions were discussed. After he cleaned up and get a good look at the wound we may just use a stapler plus or minus lidocaine. Progress Note #2: Time: 10:57 Progress Note Daughter is concerned with the patient's falls and would like us to do a little investigation. She says she has a history of UTIs. The patient is not endorsing any dysuria but also has significant dementia. Will attempt to collect a urine specimen but the daughter does not want to do a straight catheter unnecessary. We will get a basic lab draw. Progress Note #3: Time: 11:41 Progress Note Blood work looks okay. Unfortunately we are only able to collect a small sample of urine which was inadequate for urinalysis. We will send her with a outpatient order form to collect a urinalysis later today. We will send her with a prescription for Macrobid that she can start now or if the urinalysis comes back positive. The urine did appear cloudy that she produced. We did p rovide her with a glass of water. Diagnostic Imaging Diagonstic Imaging: CT Plain Films/CT/US/NM/MRI: c-spine, head Comments [facility], [place] NAME: GREGORY VEGA [facility] REC#: [id number] PT STATUS: REG ER : 1935 PHYSICIAN: MISA MAY MD ADMIT DATE: 10/28/21/ER Draft Date of Exam:10/28/21 CT HEAD/CERVICAL SPINE WO PROCEDURE: CT head and CT cervical spine without contrast. TECHNIQUE: Multiple contiguous axial images were obtained through the brain and cervical spine without the use of intravenous contrast. Sagittal and coronal reformations through the cervical spine were then performed. Auto Exposure Controls were utilized during the CT exam to meet ALARA standards for radiation dose reduction. INDICATION: Fall. Head and neck pain. Scalp laceration. COMPARISON: 06/04/2021. FINDINGS: CT HEAD: No large acute territorial ischemia, mass, or hemorrhage. No midline shift or mass effect. Decreased attenuation is seen in the periventricular and subcortical white matter. The ventricles and cortical sulci are prominent. The basilar cisterns are patent and unremarkable. The calvarium is intact. Retained secretions are seen in the left maxillary sinus and right ethmoid sinuses. The mastoid air cells are clear. CT CERVICAL SPINE: No acute fracture or dislocation is seen in the cervical spine. No focal osseous lesions. Vertebral body heights are well-maintained. The craniocervical junction is well-maintained. Moderate degenerative changes are seen in the cervical spine with disc osteophyte complexes and uncovertebral arthropathy. Soft tissues of the neck are unremarkable. The included lung apices are clear. IMPRESSION: 1. No hemorrhage or focal intra-axial mass. No CT evidence of large acute territorial ischemia. 2. No acute fracture or dislocation in the cervical spine. Dictated on workstation # [id number] Dict: 10/28/21 1027 Trans: 10/28/21 1035 [id number] Interpreted by: PIERCE CARDENAS DO Electronically signed by: Reviewed: Reviewed by Me Departure Impression Primary Impression: Fall Qualified Codes: W19.XXXA - Unspecified fall, initial encounter Additional Impression: Laceration of occipital region of scalp without complication Qualified Codes: S01.01XA - Laceration without foreign body of scalp, initial encounter Disposition: HOME, SELF-CARE Condition: Stable Departure-Patient Inst. Decision time for Depature: 11:42 Referrals: VICTORIANO WEBSTER MD (PCP/Family) Primary Care Physician Patient Instructions: Laceration Repair With Any ED Add. Discharge Instructions: Collect a urine specimen and bring it back up to the hospital and we will test it. Macrobid 1 capsule twice a day for a week for potential UTI. You may choose to just start the antibiotics if you wish but it is useful to have urinalysis so we can culture and make sure were on the right antibiotic. Return to the ER or have the any removed in 7 to 10 days. Ice pack 20 minutes on every 2 hours for the first 2 days to reduce swelling and pain. Tylenol 1000 mg every 8 hours necessary for pain. All discharge instructions reviewed with patient and/or family. Voiced understanding. Scripts Nitrofurantoin Monohyd/M-Cryst (Macrobid 100 mg Capsule) 100 Mg Capsule 1 TAB PO BID for 7 Days, #14 CAP 0 Refills Prov: MISA MAY 10/28/21 Copy Copies To 1: VICTORIANO WEBSTER MD, TITUS J Oct 28, 2021 09:59
--- NOTE | 2021-10-28 10:36 | Diagnostic Imaging Report ---
PROCEDURE: CT head and CT cervical spine without contrast. TECHNIQUE: Multiple contiguous axial images were obtained through the brain and cervical spine without the use of intravenous contrast. Sagittal and coronal reformations through the cervical spine were then performed. Auto Exposure Controls were utilized during the CT exam to meet ALARA standards for radiation dose reduction. INDICATION: Fall. Head and neck pain. Scalp laceration. COMPARISON: 06/04/2021. FINDINGS: CT HEAD: No large acute territorial ischemia, mass, or hemorrhage. No midline shift or mass effect. Decreased attenuation is seen in the periventricular and subcortical white matter. The ventricles and cortical sulci are prominent. The basilar cisterns are patent and unremarkable. The calvarium is intact. Retained secretions are seen in the left maxillary sinus and right ethmoid sinuses. The mastoid air cells are clear. CT CERVICAL SPINE: No acute fracture or dislocation is seen in the cervical spine. No focal osseous lesions. Vertebral body heights are well-maintained. The craniocervical junction is well-maintained. Moderate degenerative changes are seen in the cervical spine with disc osteophyte complexes and uncovertebral arthropathy. Soft tissues of the neck are unremarkable. The included lung apices are clear. IMPRESSION: 1. No hemorrhage or focal intra-axial mass. No CT evidence of large acute territorial ischemia. 2. No acute fracture or dislocation in the cervical spine. Dictated by: Dictated on workstation # [id number]
[2021-10-28 11:17] LABS: BASOPHILS % (AUTO) 0 % (0-10); EOSINOPHILS # (AUTO) 0.2 10^3/uL (0.0-0.3); EOSINOPHILS % (AUTO) 3 % (0-10); HEMATOCRIT 40 % (35-52); HEMOGLOBIN 11.8 g/dL (11.5-16.0); LYMPHOCYTES # (AUTO) 1.2 10^3/uL (1.0-4.0); LYMPHOCYTES % (AUTO) 18 % (12-44); MEAN CORPUSCULAR HEMOGLOBIN 24 pg (25-34); MEAN CORPUSCULAR HGB CONC 30 g/dL (32-36); MEAN CORPUSCULAR VOLUME 82 fL (80-99); MEAN PLATELET VOLUME 9.1 fL (9.0-12.2); MONOCYTES # (AUTO) 1.1 10^3/uL (0.0-1.0); MONOCYTES % (AUTO) 15 % (0-12); NEUTROPHILS # (AUTO) 4.5 10^3/uL (1.8-7.8); NEUTROPHILS % (AUTO) 63 % (42-75); PLATELET COUNT 136 10^3/uL (130-400)
[2021-10-28 11:32] VITALS: BP 116/80
[2021-10-28] MEDS ORDERED: NITR-65 PO ×2 (11:44→11:53)
== END 2021-10-28 11:47 | disposition home or self-care (01) ==
LOC: EDUNIT# 09:38 → ER 09:39
DX: S01.01XA Laceration without foreign body of scalp, initial encounter (principal); R40.2410 Glasgow coma scale score 13-15, unspecified time; W22.8XXA Striking against or struck by other objects, initial encounter
CPT/HCPCS: 12001; 36415; 70450; 72125; 85025